=== PATIENT | female | born 1980 | race Two or more races ===

== ENCOUNTER 2018-10-06 14:47 | Emergency (ER) | payer OTHER ==
[~2018-10-06] VITALS: Ht 157.5 cm; Wt 77.1 kg
[2018-10-06 15:14] VITALS: Ht 157.5 cm; Wt 77.1 kg
[2018-10-06 17:41] VITALS: BP 113/76
== END 2018-10-06 17:41 | disposition home or self-care (01) ==
LOC: ED 14:47
DX: S61.011A Laceration without foreign body of right thumb without damage to nail, initial encounter (principal); W26.8XXA Contact with other sharp object(s), not elsewhere classified, initial encounter; Y93.89 Activity, other specified; Y92.89 Other specified places as the place of occurrence of the external cause; Y99.8 Other external cause status
CPT/HCPCS: 90715

== ENCOUNTER 2018-10-08 19:55 | Emergency (ER) | payer OTHER ==
[~2018-10-08] VITALS: Ht 157.5 cm; Wt 78.9 kg
[2018-10-08 20:34] VITALS: Ht 157.5 cm; Wt 78.9 kg
[2018-10-08 22:47] VITALS: BP 132/71
== END 2018-10-08 22:47 | disposition home or self-care (01) ==
LOC: ED 19:55
DX: S61.011D Laceration without foreign body of right thumb without damage to nail, subsequent encounter (principal); X58.XXXD Exposure to other specified factors, subsequent encounter